=== PATIENT | female | born 1955 | race Caucasian/White ===

== ENCOUNTER → 2016-06-20 | Outpatient (CLI) | payer OTHER ==
[~2016-06-20] MED LIST: ALBU8HFA4 IH; CETI-260 PO; CLOT15CR5 TP; DICL75TA5 PO; DULO30CA2 PO; GABA250S5 PO; KETO5DRO3 OP; LOSA50TA37 PO; METO25 PO; MONT10TA21 PO; NIZO215C TP; RANITIDINE SYRUP PO
== END | disposition home or self-care (01) ==
LOC: RESP 12:03
PROVIDERS: ATTEND Internal Medicine Critical Care Medicine
DX: J45.909 Unspecified asthma, uncomplicated (principal)
CPT/HCPCS: 94010; 94726; 94727; 94729